=== PATIENT | male | born 1960 | race Caucasian/White ===

== ENCOUNTER → 2019-07-17 | Outpatient (CLI) | payer OTHER ==
--- NOTE | 2019-07-17 13:46 | RAD ---
Examination: CT HEAD WO CONTRAST History: Head trauma more than one week ago. Pain. Comparison/Correlation: None Findings: Axial images of the head were obtained without contrast. At the posterior right frontal region laterally and superficially, there is a 1.2 cm x 0.9 cm anteroposterior by 1.3 cm longitudinal hyperdensity lesion. There is no subarachnoid or subdural collections. No depressed fracture. No scalp swelling. Ventricles are normal size. Globes and optic nerves are unremarkable. Minimal mucosal thickening of the mitral sinus is noted. Impression: Posterolateral right high frontal hyperdense parenchymal lesion concerning for contusion injury hematoma in this patient with reported history of trauma although no other suspicious findings for trauma are present. Follow-up to resolution is recommended. Possibility of hemorrhagic mass lesion such as metastasis, primary neoplastic process, or vascular malformation are not excluded on the basis of this exam. MRI without and with contrast may be performed for more definitive assessment if clinically warranted and if able. Discussed with Dr. Mays on 07/17/2019 at 1:40 PM. PQRS Compliance Statement: One or more of the following individualized dose reduction techniques were utilized for this examination: 1. Automated exposure control 2. Adjustment of the mA and/or kV according to patient size 3. Use of iterative reconstruction technique Electronically signed by: Brdaly Cartagena MD (07/17/2019 1:42 PM) [facility]
== END ==
LOC: CT 12:36
PROVIDERS: ATTEND Preventive Medicine Occupational Medicine
DX: S09.90XA Unspecified injury of head, initial encounter (principal); G93.89 Other specified disorders of brain; J34.89 Other specified disorders of nose and nasal sinuses; X58.XXXA Exposure to other specified factors, initial encounter; Y93.89 Activity, other specified; Y92.89 Other specified places as the place of occurrence of the external cause; Y99.8 Other external cause status
CPT/HCPCS: 70450

== ENCOUNTER 2019-08-02 11:32 | Emergency (ER) | payer OTHER ==
[~2019-08-02] VITALS: Ht 190.5 cm; Wt 106.6 kg
[2019-08-02 12:16] LABS: BASO # 0.1 x10^3/uL (0.0-0.2); BASO % 1 % (0-3); EOS # 0.4 x10^3/uL (0.0-0.7); EOS % 4 % (0-3); HEMATOCRIT 47.2 % (39.0-53.0); HEMOGLOBIN 16.3 g/dL (13.0-17.5); LYMPH # 1.8 x10^3/uL (1.0-4.8); LYMPH % 20 % (24-48); MEAN CORPUSCULAR HEMOGLOBIN 31 pg (25-35); MEAN CORPUSCULAR HGB CONC 34 g/dL (31-37); MEAN CORPUSCULAR VOLUME 89 fL (79-100); MONO # 0.6 x10^3/uL (0.0-1.1); MONO % 7 % (0-9); NEUT # 6.4 x10^3/uL (1.8-7.7); NEUT % 68 % (31-73); PLATELET COUNT 264 x10^3/uL (140-400); RED CELL DISTRIBUTION WIDTH 13.2 % (11.5-14.5); WHITE BLOOD COUNT 9.4 x10^3/uL (4.0-11.0)
[2019-08-02 12:22] LABS: CALCIUM 9.6 mg/dL (8.5-10.1); CREATININE 0.9 mg/dL (0.7-1.3); POTASSIUM 3.7 mmol/L (3.5-5.1)
[2019-08-02 12:24] LABS: PROTHROMBIN TIME PATIENT 12.5 SEC (11.7-14.0)
[2019-08-02 12:28] LABS: ALBUMIN 4.3 g/dL (3.4-5.0); ALBUMIN/GLOBULIN RATIO 1.2 (1.0-1.7); TOTAL BILIRUBIN 0.6 mg/dL (0.2-1.0)
--- NOTE | 2019-08-02 13:38 | PHYS DOC ---
Adult General Chief Complaint Chief Complaint: HEADACHE HPI HPI Patient is a 59 year old male patient with history of brain hemorrhage who presents with headache and nausea and confusion. Patient had an accidental fall on July 12 while he was at work in [place] and CT showed intraparenchymal hemorrhage in the right parietal area. Patient was seen in July 17 in this emergency room and CT showed the same changes. Patient states he was seen at [facility] clinic as of headache, nausea, confusion that gradually getting force the last few days and was told to come to emergency room for evaluation regarding intracranial bleed. She denies new focal neuro deficit, vomiting, chest pain and shortness of breath and balance problem. Review of Systems Review of Systems Constitutional: Denies fever or chills [] Eyes: Denies change in visual acuity, redness, or eye pain [] HENT: Denies nasal congestion or sore throat [] Respiratory: Denies cough or shortness of breath [] Cardiovascular: No additional information not addressed in HPI [] GI: Denies abdominal pain, vomiting, bloody stools or diarrhea , reports nausea[] : Denies dysuria or hematuria [] Musculoskeletal: Denies back pain or joint pain [] Integument: Denies rash or skin lesions [] Neurologic: Denies focal weakness or sensory changes reports headache[] Endocrine: Denies polyuria or polydipsia [] All other systems were reviewed and found to be within normal limits, except as documented in this note. Current Medications Current Medications Current Medications Medications (Trade) Dose Ordered Sig/Reggie Start Time Stop Time Status Last Admin Dose Admin Gadoterate Meglumine (Dotarem) 10 ml 1X ONCE 08/02/19 14:30 08/02/19 14:31 DC Allergies Allergies Allergies Coded Allergies Type Severity Reaction Last Updated Verified codeine Allergy Intermediate 08/02/19 Yes lisinopril Allergy Intermediate 08/02/19 Yes Physical Exam Physical Exam Constitutional: Well developed, well nourished, mild distress, non-toxic appearance. [] HENT: Normocephalic, atraumatic. Eyes: PERRLA, EOMI, conjunctiva normal, no discharge. [] Neck: Normal range of motion, no tenderness, supple, no stridor. [] Cardiovascular:Heart rate regular rhythm, no murmur [] Lungs & Thorax: Bilateral breath sounds clear to auscultation [] Abdomen: Bowel sounds normal, soft, no tenderness, no masses, no pulsatile masses. [] Skin: Warm, dry, no erythema, no rash. [] Back: No tenderness, no CVA tenderness. [] Extremities: No tenderness, no cyanosis, no clubbing, ROM intact, no edema. [] Neurologic: Alert and oriented X 3, no focal deficits noted. [] Psychologic: Affect normal, judgement normal, mood normal. [] Current Patient Data Vital Signs Vital Signs Date Time Temp Pulse Resp B/P (MAP) Pulse Ox O2 Delivery O2 Flow Rate FiO2 08/02/19 14:00 62 97 08/02/19 11:40 98.2 18 207/102 (137) Room Air 98.2 Lab Values Laboratory Tests Test 08/02/19 12:00 White Blood Count 9.4 x10^3/uL (4.0-11.0) Red Blood Count 5.30 x10^6/uL (4.30-5.70) Hemoglobin 16.3 g/dL (13.0-17.5) Hematocrit 47.2 % (39.0-53.0) Mean Corpuscular Volume 89 fL (79-100) Mean Corpuscular Hemoglobin 31 pg (25-35) Mean Corpuscular Hemoglobin Concent 34 g/dL (31-37) Red Cell Distribution Width 13.2 % (11.5-14.5) Platelet Count 264 x10^3/uL (140-400) Neutrophils (%) (Auto) 68 % (31-73) Lymphocytes (%) (Auto) 20 % (24-48) L Monocytes (%) (Auto) 7 % (0-9) Eosinophils (%) (Auto) 4 % (0-3) H Basophils (%) (Auto) 1 % (0-3) Neutrophils # (Auto) 6.4 x10^3/uL (1.8-7.7) Lymphocytes # (Auto) 1.8 x10^3/uL (1.0-4.8) Monocytes # (Auto) 0.6 x10^3/uL (0.0-1.1) Eosinophils # (Auto) 0.4 x10^3/uL (0.0-0.7) Basophils # (Auto) 0.1 x10^3/uL (0.0-0.2) Prothrombin Time 12.5 SEC (11.7-14.0) Prothrombin Time INR 1.0 (0.8-1.1) Sodium Level 139 mmol/L (136-145) Potassium Level 3.7 mmol/L (3.5-5.1) Chloride Level 101 mmol/L (98-107) Carbon Dioxide Level 27 mmol/L (21-32) Anion Gap 11 (6-14) Blood Urea Nitrogen 16 mg/dL (8-26) Creatinine 0.9 mg/dL (0.7-1.3) Estimated GFR (Cockcroft-Gault) 87.0 BUN/Creatinine Ratio 18 (6-20) Glucose Level 157 mg/dL (70-99) H Calcium Level 9.6 mg/dL (8.5-10.1) Total Bilirubin 0.6 mg/dL (0.2-1.0) Aspartate Amino Transferase (AST) 34 U/L (15-37) Alanine Aminotransferase (ALT) 63 U/L (16-63) Alkaline Phosphatase 54 U/L (46-116) Total Protein 8.0 g/dL (6.4-8.2) Albumin 4.3 g/dL (3.4-5.0) Albumin/Globulin Ratio 1.2 (1.0-1.7) Laboratory Tests 08/02/19 12:00 Laboratory Tests 08/02/19 12:00 EKG EKG [] Radiology/Procedures Radiology/Procedures [][facility] [address] [place] [address] IMAGING REPORT Signed PATIENT: BRENDON JACKSON ACCOUNT: [id number] : 1960 LOCATION: ER AGE: 59 SEX: M EXAM STATUS: REG ER ORD. PHYSICIAN: ULYSSES HURST MD REASON: brain bleed /20mL DOTAREM *CALL CRITICAL REPORT [phone] PROCEDURE: BRAIN WO/W CONTRAST EXAMINATION: Magnetic resonance imaging (MRI) of the brain and brainstem without and with contrast 08/02/2019 12:04 PM HISTORY: Brain bleed TECHNIQUE: Multiplanar multi-weighted MRI of the brain and brainstem was performed without and with intravenous contrast using the general brain protocol. Contrast information: 20 mL Gadolinium based contrast COMPARISON: CT head 07/17/2019 FINDINGS: The scalp and calvarium are normal. The superior sagittal sinus demonstrates normal venous flow. The corpus callosum is normal in shape and signal intensity. The posterior fossa is unremarkable. The pituitary and sella are normal. The brainstem and craniocervical junction are unremarkable. The right parietotemporal lobe, there is a 13 x 11 mm area of signal alteration with a rim of T2 signal hypointensity and central T2 hyperintensity. There is no associated cytotoxic or vasogenic edema. There is central T1 signal hyperintensity. There is associated susceptibility artifact which appears predominantly intraparenchymal. There is no associated pathologic enhancement. Diffusion weighted images reveal no hyperintensities to suggest acute cerebral infarction. The ventricles are normal in size and position without evidence of hydrocephalus. The paranasal sinuses are normal. The visualized portions of the mastoids are unremarkable. The orbits appear normal. Normal flow voids are demonstrated in the carotid arteries and basilar artery. IMPRESSION: Focal 13 x 11 mm area of signal alteration in the right parietotemporal lobe has imaging characteristics most suggestive of a cavernoma. No definite evidence to suggest interval rebleed. A 3 month follow-up MRI brain may be of benefit to assess stability or earlier if symptoms warrant. Electronically signed by: Radha Brock MD (08/02/2019 3:07 PM) [id number] DICTATED and SIGNED BY: RADHA BROCK MD DATE: 08/02/19 1507 Course & Med Decision Making Course & Med Decision Making Pertinent Labs and Imaging studies reviewed. (See chart for details) Evaluation of patient in ER showed 59-year-old male patient with injury to the brain and intracranial small bleeding with complaining of increasing symptom. Patient had MRI affect 13 x 11 abdominal area without concern for re bleeding and was advised to follow-up with on-call neurosurgeon. I've spoken with the patient and/or caregivers. I've explained the patient's condition, diagnosis and treatment plan based on information available to me at this time. I've answered the patient's and/or caregivers questions and addressed any concerns. The patient and/or caregivers have a good understanding the patient's diagnosis, condition and treatment plan as can be expected at this point. Vital signs have been stabilized. The patient's condition is stable for discharge from the emergency department. The patient will pursue further outpatient evaluation with her primary care provider or other designated consulting physician as outlined in the discharge instructions. Patient and/or caregivers are agreeable to this plan of care and follow-up instructions have been explained in detail. The patient and/or caregivers have received these instructions in written format and expressed understanding of these discharge instructions. The patient and her caregivers a re aware that if any significant change in condition or worsening of symptoms should prompt him to immediately return to this of the closest emergency department. If an emergent department is not readily available I would encourage him to call 911. Dragon Disclaimer Dragon Disclaimer This electronic medical record was generated, in whole or in part, using a voice recognition dictation system. Departure Departure Impression: Primary Impression: Intracranial bleeding Additional Impression: Concussion Disposition: HOME, SELF-CARE (at 1546) Condition: STABLE Referrals: ISRAEL FERNANDEZ (PCP) CHRISTIE MORALES MD Patient Instructions: Concussion and Brain Injury Additional Instructions: Drink plenty of liquids Follow-up with neurosurgeon physician in 2-3 days Return to ER if not getting better Follow up with work comp clinic Thank you for visiting [facility]. We appreciate you trusting us with your care. If any additional problems come up don't hesitate to return to visit us. Please follow up with your primary care provider so they can plan additional care if needed and know about the problem that you had. If symptoms worsen come back to the Emergency Department. Any concerning symptoms that start such as chest pain, shortness of air, weakness or numbness on one side of the body, running high fevers or any other concerning symptoms return to the ER. Scripts Ondansetron Hcl (ZOFRAN) 4 Mg Tablet 1 TAB PO PRN Q6-8HRS for nausea, #12 TAB Prov: ULYSSES HURST MD 08/02/19 Hydrocodone/Apap 5-325 (NORCO 5-325 TABLET) 1 Each Tablet 1 TAB PO PRN Q6HRS PRN for PAIN, #10 TAB 0 Refills Prov: ULYSSES HURST MD 08/02/19 Problem Qualifiers Additional Impression: Concussion Encounter type: subsequent encounter Loss of consciousness presence/duration: without LOC Qualified Codes: S06.0X0D - Concussion without loss of consciousness, subsequent encounter ULYSSES HURST MD Aug 02, 2019 13:38
[2019-08-02] MEDS ORDERED: GADOTERATE 5 MMOL/10ML VIAL. IVP ONE ×2 (14:30)
--- NOTE | 2019-08-02 15:10 | RAD ---
EXAMINATION: Magnetic resonance imaging (MRI) of the brain and brainstem without and with contrast 08/02/2019 12:04 PM HISTORY: Brain bleed TECHNIQUE: Multiplanar multi-weighted MRI of the brain and brainstem was performed without and with intravenous contrast using the general brain protocol. Contrast information: 20 mL Gadolinium based contrast COMPARISON: CT head 07/17/2019 FINDINGS: The scalp and calvarium are normal. The superior sagittal sinus demonstrates normal venous flow. The corpus callosum is normal in shape and signal intensity. The posterior fossa is unremarkable. The pituitary and sella are normal. The brainstem and craniocervical junction are unremarkable. The right parietotemporal lobe, there is a 13 x 11 mm area of signal alteration with a rim of T2 signal hypointensity and central T2 hyperintensity. There is no associated cytotoxic or vasogenic edema. There is central T1 signal hyperintensity. There is associated susceptibility artifact which appears predominantly intraparenchymal. There is no associated pathologic enhancement. Diffusion weighted images reveal no hyperintensities to suggest acute cerebral infarction. The ventricles are normal in size and position without evidence of hydrocephalus. The paranasal sinuses are normal. The visualized portions of the mastoids are unremarkable. The orbits appear normal. Normal flow voids are demonstrated in the carotid arteries and basilar artery. IMPRESSION: Focal 13 x 11 mm area of signal alteration in the right parietotemporal lobe has imaging characteristics most suggestive of a cavernoma. No definite evidence to suggest interval rebleed. A 3 month follow-up MRI brain may be of benefit to assess stability or earlier if symptoms warrant. Electronically signed by: Rhonda Day MD (08/02/2019 3:07 PM) [id number]
[2019-08-02] MEDS ORDERED: ONDA4TAB7 PO (15:48)
[2019-08-02] MEDS ORDERED: HYDR-3164 PO (15:48)
[2019-08-02 16:00] VITALS: BP 174/84
--- NOTE | 2019-08-03 06:05 | EKG ---
[facility] [address] [place] [address] Test Date: 2019-08-02 Test Time: 12:00:03 Pat Name: BRENDON JACKSON Department: Room: Gender: M Switch [employer]er: : 1960 Requested By: ULYSSES HURST Order Number: [id number] Reading MD: Measurements Intervals [place] Rate: 70 P: 31 AL: 208 QRS: -33 QRSD: 176 T: 131 QT: 434 QTc: 471 Interpretive Statements SINUS RHYTHM ABNORMAL LEFT AXIS DEVIATION LEFT BUNDLE BRANCH BLOCK ABNORMAL ECG No previous ECG available for comparison
== END 2019-08-02 16:20 | disposition home or self-care (01) ==
LOC: ER 11:32
DX: S06.300A Unspecified focal traumatic brain injury without loss of consciousness, initial encounter (principal); Z88.5 Allergy status to narcotic agent; Z88.8 Allergy status to other drugs, medicaments and biological substances; W18.39XA Other fall on same level, initial encounter; Y93.89 Activity, other specified; Y92.69 Other specified industrial and construction area as the place of occurrence of the external cause; Y99.0 Civilian activity done for income or pay
CPT/HCPCS: 36415; 70553; 80053; 85025; 85610; 93005; 99285-25

== ENCOUNTER → 2021-01-12 | Outpatient (CLI) | payer OTHER ==
[~2021-01-12] MED LIST: HYDR-3164 PO; ONDA4TAB7 PO
--- NOTE | 2021-01-12 10:56 | RAD ---
EXAM: Brain MRI without contrast. HISTORY: Headache and dizziness. TECHNIQUE: Multiplanar, multisequence magnetic resonance imaging of the brain was performed without c ontrast. COMPARISON: MRI dated 08/02/2019. FINDINGS: There has been no significant change in a centrally heterogeneous T1 and T2 hyperintense an d peripherally T2 hypointense lesion within the right parietal lobe cortex measuring 1.2 cm, the appe arance of which favors a cavernoma. There is susceptibility effect within and surrounding this lesion due to chronic hemosiderin deposition, stable in appearance. There is no surrounding parenchymal maxime ma. There is no mass effect or midline shift. There is a focus of encephalomalacia within the left ce rebellum likely due to chronic infarction. There is no restricted diffusion to suggest acute or subacute infarction. There is no hydrocephalus. There are few tiny foci of signal change within the cerebral white matter, a nonspecific finding. The re is a tiny focus of FLAIR hyperintensity along the superior right thalamus which is not reproducibl e on T2-weighted images and likely artifactual. The orbits are unremarkable. There is paranasal sinus mucosal thickening. The mastoid air cells are clear. IMPRESSION: 1. 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 There is no surrounding parenchymal edema. 2. Few tiny foci of signal change within the cerebral white matter, a nonspecific finding which is mo st commonly due to chronic small vessel disease in a patient of this age. Given the patient history, the possibility of changes due to chronic migraine headaches is not excluded. 3. Stable focus of encephalomalacia within the left cerebellum likely due to chronic infarction. Electronically signed by: Pallavi Knight MD (01/12/2021 10:54 AM) [id number]
== END ==
LOC: MRI 09:13
PROVIDERS: ATTEND Psychiatry & Neurology Neurology
DX: S06.0X0S Concussion without loss of consciousness, sequela (principal); R51.9 Headache, unspecified; H81.90 Unspecified disorder of vestibular function, unspecified ear; M54.81 Occipital neuralgia; X58.XXXS Exposure to other specified factors, sequela
CPT/HCPCS: 70551